=== PATIENT | male | born 1990 | race Caucasian/White ===

== ENCOUNTER 2022-05-28 08:49 | Emergency (ER) | payer SELFPAY ==
[~2022-05-28] VITALS: Ht 180.3 cm; Wt 86.2 kg
[~2022-05-28 08:49] MED LIST: ALBU90OI INH; ALBU90OI61 INH; Prednisone20 MG PO; Veetids 500500 MG PO
[2022-05-28 11:20] LABS: Influenza A, PCR NEGATIVE (NEGATIVE); Influenza B, PCR NEGATIVE (NEGATIVE); Resp Syncytial Virus, PCR NEGATIVE (NEGATIVE); SARS-Cov-2 (COVID-19) PCR, MMC NEGATIVE (NEGATIVE)
[2022-05-28] MEDS ORDERED: ALBU2.5V5 NEB (11:51)
[2022-05-28] MEDS ORDERED: ALBU90OI INH (11:51)
[2022-05-28] MEDS ORDERED: METPRE4DP PO (11:51)
[2022-05-29] MEDS ORDERED: ALBU2.5V5 INH (14:54)
[2022-05-29] MEDS ORDERED: PRED20 PO (14:55)
== END 2022-05-28 12:45 | disposition home or self-care (01) ==
LOC: ER 08:49
PROVIDERS: Emergency Medicine
DX: J45.901 Unspecified asthma with (acute) exacerbation (principal); J98.8 Other specified respiratory disorders; Z87.891 Personal history of nicotine dependence; Z20.822 Contact with and (suspected) exposure to COVID-19
CPT/HCPCS: 0241U; 71045; 94644; 94664; J3475

== ENCOUNTER 2022-05-28 22:42 | Observation (INO) | payer SELFPAY ==
[~2022-05-28] VITALS: Ht 175.3 cm; Wt 86.2 kg
[~2022-05-28 22:42] MED LIST changes: +ALBU2.5V5 NEB; +METPRE4DP PO
[2022-05-28 23:07] LABS: BASOPHILS ABSOLUTE AUTO 0.01 K/mm3 (0.00-0.23); BASOPHILS PERCENT AUTO 0 % (0-2); EOSINOPHILS PERCENT AUTO 0 % (0-6); Hematocrit 43.8 % (37.0-53.0); Hemoglobin 15.5 g/dL (13.5-17.5); IMMATURE GRAN ABSOLUTE AUTO 0.03 K/mm3 (0.00-0.10); IMMATURE GRAN PERCENT AUTO 0 % (0-1); LYMPHOCYTES ABSOLUTE AUTO 0.93 K/mm3 (0.84-5.20); LYMPHOCYTES PERCENT AUTO 9 % (21-46); MONOCYTES ABSOLUTE AUTO 0.63 K/mm3 (0.16-1.47); MONOCYTES PERCENT AUTO 6 % (4-13); Mean Corpuscular HGB 28.9 pg (26.0-34.0); Mean Corpuscular HGB Conc 35.4 g/dL (31.5-36.5); Mean Corpuscular Volume 82 fL (80-100); NEUTROPHILS ABSOLUTE AUTO 8.75 K/mm3 (1.96-9.15); NEUTROPHILS PERCENT AUTO 85 % (41-73); Platelet Count 208 K/mm3 (150-400); RDW Coefficient Variation 11.9 % (11.7-14.2); RDW Standard Deviation 35.1 fL (35.1-46.3); Red Blood Cell Count 5.36 M/mm3 (4.30-5.90); White Blood Cell Count 10.35 K/mm3 (4.00-11.30)
[2022-05-28 23:29] LABS: Albumin, Blood 4.4 g/dL (3.4-5.0); Bilirubin, Total 0.5 mg/dL (0.1-1.0); Bun/Creatinine Ratio 18.1 (12.0-20.0); Calcium, Blood 8.9 mg/dL (8.5-10.1); Creatinine, Blood 0.72 mg/dL (0.60-1.20); Globulin, Blood 4.2 g/dL (2.2-4.0); Potassium, Blood 4.7 mmol/L (3.5-5.5); Total Protein, Blood 8.6 g/dL (6.4-8.2)
[2022-05-29 00:08] LABS: Base Excess Venous -4.7 mmol/L; Bicarbonate Venous 20.5 mmol/L (24.0-30.0); PCO2 Venous 46.3 mmHg (38-42); pH Blood Venous 7.29 (7.34-7.37)
[2022-05-29 00:09] LABS: PO2 Venous 141 mmHg (38-42)
[2022-05-29 00:44] LABS: Magnesium, Blood 3.5 mg/dL (1.6-2.4)
[2022-05-29] MEDS ORDERED: ALBU2.5V5 INH (14:54)
[2022-05-29] MEDS ORDERED: PRED20 PO (14:55)
== END 2022-05-29 15:30 | disposition home or self-care (01) ==
LOC: ER 22:42 → ERHOLD 22:43 → PCU 05-29 14:40
PROVIDERS: Student in an Organized Health Care Education/Training Program; ADMIT Internal Medicine
DX: J96.01 Acute respiratory failure with hypoxia (principal); J45.901 Unspecified asthma with (acute) exacerbation; R00.0 Tachycardia, unspecified; Z87.891 Personal history of nicotine dependence
CPT/HCPCS: 36415; 71045; 80053; 82803; 83735; 83880; 84484; 85025; 90686; 93005; 93010; 94640; 94644; 94645; 94664; 96372-59; 96374; 99285-25; J1650; J2930; J7512

== ENCOUNTER 2024-07-10 10:00 | Day surgery (SDC) | payer OTHER ==
[~2024-07-10] VITALS: Ht 175.3 cm; Wt 67.6 kg
[~2024-07-10 10:00] MED LIST changes: +ALBU2.5V5 INH; +Lidocaine 2%-Epineph 1:200000 20 ML SDV ONE; +PRED20 PO
[2024-07-10] MEDS ORDERED: FentaNYL Citrate 50 MCG/ML 2 ML Injection ONE (10:35)
[2024-07-10] MEDS ORDERED: propofoL 20 ML IV ONE (10:35)
[2024-07-10] MEDS ORDERED: ESCI10 PO (10:41)
[2024-07-10] MEDS ORDERED: Lactated Ringer's 1,000 ML IV ONE ×3 (10:55→14:12)
--- NOTE | 2024-07-10 10:56 | NUR ---
07/10/24 1056 QAMAR ORTIZ RAILS UP, CALL LIGHT IN REACH
[2024-07-10] MEDS ORDERED: EPINEPhrine HCl 1 MG / ML 30ML Vial ONE ×2 (11:11→13:36)
[2024-07-10] MEDS ORDERED: Rocuronium Bromide 10 MG/ML 5ML Injection IV ONE (11:47)
[2024-07-10] MEDS ORDERED: Tranexamic Acid 100 ML IV ONE (11:49)
[2024-07-10] MEDS ORDERED: Dexamethasone Sod Phos 10 MG/ML 1ML VIAL ONE (11:56)
[2024-07-10] MEDS ORDERED: Ondansetron HCl 2 MG / ML 2ML Vial ONE (11:56)
--- NOTE | 2024-07-10 12:13 | NUR ---
07/10/24 1213 Eula Manzano TXLukas GIVEN BY ANESTHESIA AT [address] GONZALEZ
[2024-07-10] MEDS ORDERED: HYDROmorphone HCl/Pf 1MG SYR ONE (13:10)
[2024-07-10] MEDS ORDERED: OxyCODONE HCL 5 MG TAB ONE (15:07)
--- NOTE | 2024-07-10 15:23 | NUR ---
07/10/24 1523 Elijah Monroe, PT NEEDED TO GET UP TO THE BATHROOM RIGHT AFTER ARRIVING TO SDU. PT ASSISTED BY 2 RNS. PT TRANSFERRED VIA WHEELCHAIR. PT RECEIVED OXYCODONE PER MD ORDER FOR THROBBING HEADACHE. PT STATES IT'S MOSTLY PRESSURE. TOLERATED CRACKERS, CHEESE, AND DRINKS WITH OXYCODONE.
[2024-07-10 15:30] VITALS: BP 145/91
== END 2024-07-10 15:34 | disposition home or self-care (01) ==
LOC: ORSCSDS 10:00
PROVIDERS: Otolaryngology
PROC: 09SM0ZZ Reposition Nasal Septum, Open Approach (ICD-10-PCS; principal; 2024-07-10 12:00)
PROC: 09DQ4ZZ Extraction of Right Maxillary Sinus, Percutaneous Endoscopic Approach (ICD-10-PCS; principal; 2024-07-10 12:00)
PROC: 09DR4ZZ Extraction of Left Maxillary Sinus, Percutaneous Endoscopic Approach (ICD-10-PCS; principal; 2024-07-10 12:00)
DX: J32.9 Chronic sinusitis, unspecified (principal); J34.2 Deviated nasal septum; J34.3 Hypertrophy of nasal turbinates; J45.909 Unspecified asthma, uncomplicated; I10 Essential (primary) hypertension; Z79.899 Other long term (current) drug therapy; Z87.891 Personal history of nicotine dependence
CPT/HCPCS: 88305; 88311; A9270; C2625; J0171; J1100; J1171; J2405; J2704; J3010; J7120